=== PATIENT | female | born 1990 | race Caucasian/White ===

== ENCOUNTER 2025-05-18 08:58 | Observation (INO) | payer OTHER, SELFPAY ==
[2025-05-18] VITALS (8 sets, daily range): BP systolic 110–141; BP diastolic 64–87; PULSE 72–96; RESP 15–20; TEMP 36.6–37.4; O2SAT 97–100; BMI 21.2
--- NOTE | ~2025-05-18 | CT_ITS ---
EXAMINATION: CT abdomen pelvis w con DATE: 05/18/2025 10:09 INDICATION: Right upper and lower quadrant abdominal pain TECHNIQUE: Computed tomography (CT) of the abdomen and pelvis was performed with 100 mL Omnipaque-350 intravenous contrast. Automated exposure control and iterative reconstruction technique were employe d. The dose-length product was 205.29 mGy-cm. COMPARISON: None FINDINGS: Lung bases are clear. Visualized inferior heart is normal. No pericardial or pleural effusion. Liver, gallbladder, spleen, pancreas, bilateral adrenal glands and kidneys are normal. A fluid-filled dilat ed appendix measuring up to 1.3 cm diameter with appendicoliths at the base of the appendix and promi nent surrounding inflammatory stranding consistent with acute appendicitis. No abscess or free intrap eritoneal gas. Small amount of likely reactive free fluid in the deep pelvis. Bowels are otherwise un remarkable with no obstruction. Bladder, uterus and bilateral adnexa are unremarkable with 1.6 cm lik joaquín dominant follicle at the left ovary. No pathologically enlarged abdominal or pelvic lymphadenopat hy. Bones are unremarkable. IMPRESSION: 1. Acute appendicitis. Dr. Morfin discussed these findings with Dr. Gerber at 10:48 AM. Reviewed, dictated and finalized at location A.
--- OUTSIDE RECORDS SUMMARY | 2025-05-18 09:02 | XMS_ITS | Encounter Summary ---
Author Organization [employer] Address 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
--- OUTSIDE RECORDS SUMMARY | 2025-05-18 09:02 | XMS_ITS | Clinical Summary ---
Author Organization [facility] [email or web address] Address [address] [place] [address] Care Team Providers Care Experimental Mechanic Electrical Name Role Phone Sharath Varghese PA-C Primary Care Provider Source Comments [facility],non-owned Affiliates and Associated Physician Practices is amultiple site organization consisting of ambulatory clinics and hospital sitesin [place], [place], [place] and [place]. This disclosure is being madepursuant to the Care Everywhere program and may not contain all information available regarding this patient. Last updated 18.[facility] [email or web address] Allergies Active Allergy Reactions Criticality Noted Date Comments Amoxicillin Urticaria Medium 03/17/2017 Medications * Be aware that medications may not be up to date on this document. Alwaysverify current medications with the patient. 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 (F LUZONE; FLULAVAL; FLUARIX; AFLURIA QUADRIVALENT; 6MO+), 0.5 ML (IIV4) 08/19/2016 Influenza Nasal 08/14/2009 MENINGOCOCCAL ACWY (MCV4P) VAC IM 05/31/2007 MMR 04/10/1997,08/12/1993 POLIO OPV 04/10/1997, 4,1992,09/10,1992 TDAP (7yrs+) 04/18/2020,2006 Family History Medical History Relation Name Comments Cancer - Prostate Father Diabetes - Type 2 Father Cancer - Skin, Melanoma Mother Cancer - Prostate Paternal Grandfather Relation Name Status Comments Father Mother Alive Paternal Grandfather Sister 1 Alive Sister 2 Alive Social History Tobacco Use Types Packs/Day Years Used Date Smoking Tobacco: Never Smokeless Tobacco: Never Tobacco Cessation:Counseling Given: Not Answered Alcohol Use Standard Drinks/Week Comments Yes 0 (1 standard drink = 0.6 oz pur e alcohol) occasional/socially AUDIT-C Answer Date Recorded Q1: How often do you have a drink containing alc ohol? 2-4 times a month 12/05/2021 Average Number of Drinks Not on file 022 Q3: How often do you have si x or more drinks on one occasion? Never 12/05/2021 PHQ-2 Answer Date Recorded PHQ2 TOTAL SCORE 3 11/10/2021 Comments No Sex and Gender Information Value Date Recorded Sex Assigned at Not on file Legal Sex Female 9:24 AM CDT Gender Identity Not on file Sexual Orientation Not on file Last Filed Vital Signs Vital Sign Reading Time Taken Comments Blood Pressure 112/68 04/08/2023 8:45 AM CDT Pulse 67 04/08/2023 8:45 AM CDT Temperature 36.6 C (97.9 F) 04/08/2023 8:21 AM CDT Respiratory Rate 13 04/08/2023 8:45 AM CDT Oxygen Saturation 97% 04/08/2023 8:45 AM CDT Inhaled Oxygen Concentration - - Weight 64.6 kg (142 lb 8 oz) 04/08/2023 7:25 AM CDT Height 161.3 cm (5' 3.5) 04/08/2023 7:25 AM CDT Body Mass Index 24.85 04/08/2023 7:25 AM CDT Plan of Treatment Health Maintenance Due Date Last Done Comments HIV SCREENING 2007 HEPATITIS C SCREENING 04/30/2010 PAP SMEAR 2013 HPV VACCINE (3 - 3-dose series) 06/05/2014 03/13/2014, 03/25/2010 COVID-19 VACCINE ( season) 2024 08/22/2021, 01/30/2021, 01/02/2021 DEPRESSION SCREENING 10/18/2024 02/02/2022 INFLUENZA VACCINE (#1) 2025 , 08/19/2016, 08/14/2009 DTAP/TDAP/TD VACCINES (8 - Td or Tdap) 04/18/2030 04/18/2020, 2006, 04/10/1997, Additional history exists ZOSTER VACCINE (1 of 2) 2042 HIB VACCINE Completed 08/12/1993, 10/18, 1992, Additional history exists HEPATITIS B VACCINE Completed 11/06/2002, 05/15/2002, 03/28/2002 MENINGOCOCCAL GROUPS A/C/Y/W VACCINE Aged Out 05/31/2007 No longer eligible based on patient's age to complete this topic MENINGOCOCCAL (Group B) VACCINE SHARED DECISION-MAKING Aged Out No longer eligible based on patient's age to complete this topic PNEUMOCOCCAL VACCINE Aged Out No long er eligible based on patient's age to complete this topic Insurance AETNA AETNA Care Teams Experimental Mechanic Electrical Relationship Specialty Start Date End Date Sharath Varghese PA-C [address] [address] [facility] - General 04/08/20
--- OUTSIDE RECORDS SUMMARY | 2025-05-18 09:02 | XMS_ITS | Encounter Summary ---
Author Organization [employer] Address 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
--- OUTSIDE RECORDS SUMMARY | 2025-05-18 09:02 | XMS_ITS | Clinical Summary ---
Author Organization [facility] Address [address] [place] [address] Phone Care Team Providers Care Vtc Technician Name Role Phone Mariaelena Najera MD Primary Care Provider [phone] Allergies Active Allergy Reactions Criticality Noted Date Comments Amoxicillin Itching,Other (See Comments),Rash,Hives High 08/19/2016 Medications norethindrone Ac-Eth estradiol 1-20 mg-mcg tablet Take 1 Tablet by mouth. Active Norethindrn A-E estradiol-Iron (ESTROSTEP FE-28) 1-20(5)/1-30(7) /1mg-35mcg (9) tablet Take by mouth. 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 Gender Identity Not on file Sexual Orientation Not on file Occupation Industry Job Start Date Job End Date Not on file Not on file Not on file Not on file Last Filed Vital Signs Vital Sign Reading Time Taken Comments Blood Pressure 107/69 03/28/2019 1:15 PM CDT Pulse 70 07/14/2012 9:50 AM CDT Temperature 36.7 C (98.1 F) 07/14/2012 10:32 AM CDT Respiratory Rate 16 07/14/2012 10:32 AM CDT Oxygen Saturation 98% 07/14/2012 10:32 AM CDT Inhaled Oxygen Concentration - - Weight 48.7 kg (107 lb 6 oz) 03/28/2019 1:15 PM CDT Height 162.6 cm (5' 4) 03/28/2019 1:15 PM CDT Body Mass Index 18.43 03/28/2019 1:15 PM CDT Plan of Treatment Health Maintenance Due Date Last Done Comments HEPATITIS B VACCINES (1 of 3 - 19+ 3-dose series) 2011 HPV/Cotest (21-29) 2013 HPV VACCINES (2 - 3-dose series) 04/10/2014 03/13/20 14 DTAP/TDAP/TD VACCINES (4 - T d or Tdap) 2016 2006, 04/10/1997, 11/04/1993 CERVICAL CANCER SCREENING 2022 HPV/Cotest (30-65) 2022 PAP SMEAR 2022 INFLUENZA VACCINE (#1) 2025 08/19/2016, 2008 Advance Directives For more information, please contact: [phone] * Full Code (Latest Code Status on File) Date Activated Date Inactivated Comments 07/14/2012 8:36 AM 07/14/2012 12:35 PM * Full Code Date Activated Date Inactivated Comments 07/14/2012 7:52 AM 07/14/2012 8:36 AM * Full Code Date Activated Date Inactivated Comments 07/14/2012 5:55 AM 07/14/2012 7:52 AM Care Teams Vtc Technician Relationship Specialty Start Date End Date Mariaelena Najera MD PCP - General 06/28/08
--- OUTSIDE RECORDS SUMMARY | 2025-05-18 09:02 | XMS_ITS | Clinical Summary ---
Author Organization [facility] Address [address] [place] [address] Care Team Providers Care Superintendent Measurement Name Role Phone Maria De Jesus Love MD Primary Care Provider Kim good Allergies Active Allergy Reactions Criticality Noted Date Comments Amoxicillin Other (see Comments) 08/19/2016 Discoloration of skin Medications Norethindron-Eth inyl Estrad-Fe -/-30/-35 MG-MCG Tablet Take by mouth. Active Immunizations Immunization Administration Dates Next Due DTAP VACCINE 04/10/1997,11/04/1993 DTP Vaccine 1992,1992,1992 Hepatitis B Vaccine,unspecif ied Formulation 11/06/2002,05/15/2002,03/28/2002 Hib Vaccine,unspecified Formulation 07/19,1992,1992,07/09 Hpv, Unspecified Formulation 03/25/2010 Human Papillomavirus Vaccine (HPV), quadrivalent 03/13/2014 Influenza Vaccine Nasal 08/14/2009 MMR Vaccine 04/10/1997,08/12/1993 Meningococcal Vaccine, Unspe cified Formulation 05/31/2007 OPV 04/10/1997, 4,1992,09/10,1992 PUR FLU 3+ YRS PRES FREE QUAD IM 08/19/2016 TDAP Vaccine 2006 Family History Medical History Relation Name Comments High Cholesterol Father Dementia Maternal Grandmother Macular Degeneration Maternal Grandmother Stroke Maternal Grandmother Melanoma Mother Dementia Paternal Grandmother Relation Name Status Comments Father Alive Maternal Grandmother Mother Alive Paternal Grandmother Alive Social History Tobacco Use Types Packs/Day Years Used Date Smoking Tobacco: Never Smokeless Tobacco: Never Tobacco Cessation:Counseling Given: No Alcohol Use Standard Drinks/Week Comments Yes 0 (1 standard drink = 0.6 oz pur e alcohol) socially Comments No Sex and Gender Information Value Date Recorded Sex Assigned at Not on file Legal Sex Female 9:15 PM CDT Gender Identity Not on file Sexual Orientation Not on file Last Filed Vital Signs Vital Sign Reading Time Taken Comments Blood Pressure 100/60 08/19/2016 4:03 PM CDT Pulse 74 08/19/2016 4:03 PM CDT Temperature 36.3 C (97.4 F) 08/19/2016 4:03 PM CDT Respiratory Rate 18 08/19/2016 4:03 PM CDT Oxygen Saturation 97% 08/19/2016 4:03 PM CDT Inhaled Oxygen Concentration - - Weight 48.1 kg (106 lb) 08/19/2016 4:03 PM CDT Height 160 cm (5' 3) 08/19/2016 4:03 PM CDT Body Mass Index 18.78 08/19/2016 4:03 PM CDT Plan of Treatment Health Maintenance Due Date Last Done Comments Hepatitis C Virus (HCV) Screening 1992 Pap Smear 2013 Human Papillomavirus (HPV) Immunization (3 - 3-dose series) 06/05/2014 03/13/2014, 03/25/2010 DTaP/Tdap/Td Immunization (7 - Td or Tdap) 2016 2006, 04/10/1997, 11/04/1993, Additional history exists Cervical Cancer Screening (CCS) 2022 HPV/Cotest 2022 SARS-COV-2 Immunization ( season) 2024 08/22/2021, 01/30/2021, 01/02/2021 Influenza Immunization (#1) 2025 08/19/2016, 1 Respiratory Syncytial Virus (RSV) Immunization (Adult) (1 - 1-dose 75+ series) 2067 Hepatitis B Immunization Completed 003, 05/15/2002, 03/28/2002 Meningococcal Immunization (ACWY) Aged Out 05/31/2007 No longer eligible based on patient's age to complete this topic Pneumococcal Immunization Combined Aged Out No longer eligible based on patient's age to complete this topic Rotavirus Immunization Aged Out No lo nger eligible based on patient's age to complete this topic Insurance [facility] Member Subscriber Plan / Payer (Ef fective for All Dates) Name:Yolanda Miner Relation to Subscriber:Child Name:IsidraMarita Date of :1958 (Home) Address: [address] [place] [id number] Payer ID:[id number] Type:PPO Address: [address] Care Teams Superintendent Measurement Relationship Specialty Start Date End Date Maria De Jesus Love MD PCP - General Internal Medicine 08/19/16
--- OUTSIDE RECORDS SUMMARY | 2025-05-18 09:02 | XMS_ITS | Encounter Summary ---
Author Organization [employer] Address 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
--- OUTSIDE RECORDS SUMMARY | 2025-05-18 09:02 | XMS_ITS | Encounter Summary ---
Author Organization [employer] Address 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
--- OUTSIDE RECORDS SUMMARY | 2025-05-18 09:02 | XMS_ITS | Encounter Summary ---
Author Organization [facility] Address [address] [place] [address] Care Team Providers Care Interventional Sale Consultant Name Role Phone Sharath Varghese PA-C Primary Care Provider Reason for Visit * Reason Onset Date Comments Follow-up 04/09/2023 Encounter Details Date Type Department Care Team (Late st Contact Info) Description 04/09/2023 Patient Outreach [facility] [address] [place] [id number] Bolivar Patel RN Follow-up Social History Tobacco Use Types Packs/Day Years Used Date Smoking Tobacco: Never Smokeless Tobacco: Never Alcohol Use Standard Drinks/Week Comments Yes 0 [...] on file Sexual Orientation Not on file COVID-19 Exposure Response Date Recorded In the last 10 days, have yo u been in contact with someone who was confirmed or suspected to have Coronavirus/COVID-19? No / Unsure 04/08/2023 7:10 AM CDT documented as of this encounter Functional Status * Is person deaf or have serious hearing difficulty? Answer Date of Assessment Author No 04/08/2023 8:25 AM Charly Bryant RN * Is person blind or have serious difficulty seeing? Answer Date of Assessment Author No 04/08/2023 8:25 AM POLOT Charly Muniz RN * Does person have serious difficulty walking/climbing stairs? Answer Date of Assessment Author No 04/08/2023 8:25 AM Charly Bryant RN * Does person have difficulty dressing/bathing? Answer Date of Assessment Author No 04/08/2023 8:25 AM Charly Bryant RN * Does person have difficulty doing errands alone? Answer Date of Assessment Author No 04/08/2023 8:25 AM Charly Bryant RN documented as of this encounter Mental Status * Does person have difficulty concentrating/remembering/making decisions? Answer Entry Date Author No 04/08/2023 8:25 AM Charly Bryant RN documented in this encounter Plan of Treatment Not on file documented as of this encounter Visit Diagnoses Not on filedocumented in this encounter Care Teams Interventional Sale Consultant Relationship Specialty Start Date End Date Sharath Varghese PA-C [address] [address] PCP - General 04/08/20 documented as of this encounter
--- OUTSIDE RECORDS SUMMARY | 2025-05-18 09:02 | XMS_ITS | Encounter Summary ---
Author Organization [facility] Address [address] [place] [address] Care Team Providers Care Medical Coding Specialist Name Role Phone Sharath Varghese PA-C Primary Care Provider Encounter Details Date Type Department Care Team (Late st Contact Info) Description 04/24/2022 Patient Outreach [facility] [address] [place] [address] Glenis Tavera, RN Social History Tobacco Use Types Packs/Day Years Used Date Smoking Tobacco: Never Smokeless Tobacco: Never Alcohol Use Standard Drinks/Week Comments Yes 0 (1 standard drink = 0.6 oz pur e alcohol) occasional AUDIT-C Answer Date Recorded Q1: How often [...] on file documented as of this encounter Functional Status * Is person deaf or have serious hearing difficulty? Answer Date of Assessment Author No 04/23/2022 11:25 AM Violeta Naik RN * Is person blind or have serious difficulty seeing? Answer Date of Assessment Author No 04/23/2022 11:25 AM Violeta Naik RN * Does person have serious difficulty walking/climbing stairs? Answer Date of Assessment Author No 04/23/2022 11:25 AM Violeta Naik RN * Does person have difficulty dressing/bathing? Answer Date of Assessment Author No 04/23/2022 11:25 AM Violeta Naik RN * Does person have difficulty doing errands alone? Answer Date of Assessment Author No 04/23/2022 11:25 AM Violeta Naik RN documented as of this encounter Mental Status * Does person have difficulty concentrating/remembering/making decisions? Answer Entry Date Author No 04/23/2022 11:25 AM Violeta Naik RN documented in this encounter Plan of Treatment Not on file documented as of this encounter Visit Diagnoses Not on filedocumented in this encounter Care Teams Medical Coding Specialist Relationship Specialty Start Date End Date Sharath Varghese PA-C [address] [address] PCP - General 04/08/20 documented as of this encounter
--- NOTE | 2025-05-18 09:19 | ED_ITS ---
HPI - General Adult General Chief complaint: Abdominal Pain Stated complaint: abd pain Time Seen by Provider: 05/18/25 09:01 History of Present Illness HPI narrative: 35-year-old female presented to the emergency department for evaluation for right-sided abdominal pain with associated nausea and vomiting. Patient reports symptoms started yesterday afternoon and did worsen over the course of the evening. Patient denies any significant past medical history other than cleft palate. Patient denies any prior history of ovarian cyst, gallbladder issues or appendicitis. Patient has no abdominal surgical history. Related Data Home Medications ?Medication ?Instructions ?Recorded ?Confirmed ?Last Taken ?Type cetirizine 10 mg tablet (24Hour 10 mg PO DAILY 05/18/25 05/18/25 05/17/25 History Allergy) fluticasone propionate 50 1 spray intranasal DAILY 05/18/25 05/18/25 05/17/25 History mcg/actuation nasal spray,suspension (24 Hour Allergy Relief) sertraline 25 mg tablet 25 mg PO Q24H 05/18/25 05/18/25 05/17/25 History Allergies Allergy/AdvReac Type Severity Reaction Status Date / Time amoxicillin Allergy Intermediate rash Verified 05/18/25 13:19 Review of Systems 2 Review of Systems: All systems reviewed & are unremarkable except as noted in HPI and below PMFSH Social History Social History Smoking status: Never smoker Drinks per week: 3 Substance use type: does not use Lack of Transportation: No Lack of Food: Never True Current Housing: I Have Housing Concerned About Future Housing: No Difficulty Paying Gas/Electric Bills: No Difficulty Paying for Meds: No Currently Unemployed: No Education: Decline to Answer Difficulty w/ Childcare or Family Care: No Spiritual care concerns: No Exam 2 Narrative: APPEARANCE: Uncomfortable appearing. HEAD: normocephalic, atraumatic. EYES: PERRLA/EOMI, conjunctivae clear. NOSE: Normal no drainage EARS:TMS clear with good light reflex. THROAT: Pharynx clear, no exudate. NECK: Supple. No adenopathy, no masses. RESPIRATORY: Airway patent, respirations nonlabored. Clear to auscultation bilaterally, no rales, rhonchi, wheezing. CARDIOVASCULAR: Regular rate and rhythm without murmurs rubs or gallops. ABDOMINAL: Right upper and right lower quadrant tenderness to palpation, rebound and guarding MUSCULOSKELETAL: Moves all extremities. Strength/ROM intact, No edema, No calf tenderness. NEURO: Alert. Cranial nerves II through XII intact. Good gait. Good coordination SKIN: Warm, dry. Normal Color Course Vital Signs Vital signs: Vital Signs Temperature 98.3 F 05/18/25 09:06 Pulse Rate 88 05/18/25 09:06 Respiratory Rate 18 05/18/25 09:06 Blood Pressure 141/87 H 05/18/25 09:06 Pulse Oximetry 100 05/18/25 09:06 Oxygen Delivery Room Air 05/18/25 09:06 Temperature 98.1 F 05/18/25 13:58 Pulse Rate 72 05/18/25 13:58 Respiratory Rate 16 05/18/25 13:58 Blood Pressure 129/81 05/18/25 13:58 Pulse Oximetry 99 05/18/25 13:58 Oxygen Delivery Room Air 05/18/25 09:06 Medical Decision Making MDM Narrative Medical decision making narrative: 35-year-old female presenting to the emergency department for evaluation for right-sided abdominal pain. Patient is currently afebrile does have a leukocytosis of 17.9 heme 13.7. INR is 1.1. Patient has no acute abnormalities on her CMP. Patient has no elevation of AST ALT alk-phos or lipase. UA was negative for infection but positive for ketones. CT was concerning for acute appendicitis without abscess without perforation. Patient was treated with 1 L of IV fluids, started on IV Zosyn. Patient was initially treated 0.5 mg of IV Dilaudid for pain medication. Case was discussed with surgery and patient was admitted primarily to surgery. Patient was updated on the plan for chest pain had surgery today. Differential Diagnosis Differential Diagnosis: Colitis, diverticulitis, cholecystitis, appendicitis Vital Signs Vital Signs: Vital Signs Temperature 98.3 F 05/18/25 09:06 Pulse Rate 88 05/18/25 09:06 Respiratory Rate 18 05/18/25 09:06 Blood Pressure 141/87 H 05/18/25 09:06 Pulse Oximetry 100 05/18/25 09:06 Oxygen Delivery Room Air 05/18/25 09:06 Temperature 98.1 F 05/18/25 13:58 Pulse Rate 72 05/18/25 13:58 Respiratory Rate 16 05/18/25 13:58 Blood Pressure 129/81 08/01/25 13:58 Pulse Oximetry 99 05/18/25 13:58 Oxygen Delivery Room Air 05/18/25 09:06 Lab Data Lab results reviewed: Yes I reviewed the patient's lab results. 05/18/25 09:12 05/18/25 09:12 Labs: Lab Results 05/18/25 05/18/25 Range/Units 09:07 09:12 WBC 17.9 H (4.5-10.0) K/mm3 RBC 4.50 (4.2-5.4) M/mm3 Hgb 13.7 (12.0-15.0) g/dL Hct 40.3 (37.0-47.0) % MCV 89.6 (80-100) fl MCH 30.4 (26-34) pg MCHC 34.0 (32-36) g/dl RDW 11.3 L (11.5-14.5) % Plt Count 277 (150-375) k/mm3 MPV 11.1 H (7.4-10.4) fl Immature Gran % (Auto) 0.4 (0-0.5) % Neut % (Auto) 91.9 H (45.5-73.1) % Lymph % (Auto) 3.5 L (18.3-44.2) % [place] % (Auto) 4.0 (2.6-8.5) % Eos % (Auto) 0.0 (0-4.4) % Baso % (Auto) 0.2 (0.2-1.2) % Lymph # (Auto) 0.63 L (0.9-3.2) K/mm3 [place] # (Auto) 0.7 H (0.1-0.6) K/mm3 Eos # (Auto) 0.0 (0-0.3) K/mm3 Baso # (Auto) 0.0 (0.0-0.1) K/mm3 Abs Immat Gran (auto) 0.08 H (0.00-0.031) K/mm3 Absolute Neuts (auto) 16.4 H (1.3-6.7) K/mm3 Absolute Nucleated RBC 0.000 (0.0-0.012) K/mm3 Nucleated RBC % 0.0 (0.0-0.2) % PT 13.9 (11.1-14.7) Seconds INR 1.1 APTT 27.3 (22.3-36.8) Seconds Sodium 136 L (137-145) mmol/L Potassium 3.9 (3.4-5.0) mmol/L Chloride 103 (98-107) mmol/L Carbon Dioxide 23 (22-30) mmol/L Anion Gap 10 (4-12) mmol/L BUN 7 (7-17) mg/dL Creatinine 0.77 (0.7-1.0) mg/dL Estim Creat Clear Calc 75 ml/min Estimated GFR > 60 (59 - ) Glucose 105 (65-110) mg/dL Calcium 9.3 (8.4-10.2) mg/dL Total Bilirubin 0.5 (0.2-1.3) mg/dL AST 26 (14-36) U/L ALT 22 (6-35) U/L Alkaline Phosphatase 67 (38-126) U/L Total Protein 7.6 (6.3-8.2) g/dL Albumin 4.5 (3.5-5.1) g/dL Lipase 91 (23-300) U/L Urine Color Yellow (Yellow) Urine Appearance Clear (Clear) Urine pH 6.0 (5.0-9.0) Ur Specific [place] 1.007 (1.001-1.035) Urine Protein Negative (Negative) mg/dL Urine Glucose (UA) Negative (Negative) mg/dL Urine Ketones 2+ H (Negative) mg/dL Ur Blood (Man) Negative (Negative) Urine Nitrate Negative (Negative) Urine Bilirubin Negative (Negative) Urine Urobilinogen 0.2 (<2.0) mg/dL Leukocyte Esterase Rfl Negative (Negative) LANETTE/UL Urine Test Negative Imaging Data Radiologist's impression: Impressions Abdomen/Pelvis CT 05/18/25 10:45 IMPRESSION: 1. Acute appendicitis. Dr. Morfin discussed these findings with Dr. Gerber at 10:48 AM. Discharge Plan Discharge Clinical Impression: Acute appendicitis Patient Disposition: Still a Patient Condition: Stable
[2025-05-18 09:22] LABS: Hematocrit 40.3 % (37.0-47.0); Hemoglobin 13.7 g/dL (12.0-15.0); Immature Granulocyte Percent A 0.4 % (0-0.5); Lymphocytes Absolute Auto 0.63 K/mm3 (0.9-3.2); Mean Corpuscular HGB Conc 34.0 g/dl (32-36); Mean Corpuscular Hemoglobin 30.4 pg (26-34); Mean Corpuscular Volume 89.6 fl (80-100); Nucleated Red Blood Cells Absolute Auto 0.000 K/mm3 (0.0-0.012); Nucleated Red Blood Cells Perc 0.0 % (0.0-0.2); Platelet Count Result 277 k/mm3 (150-375); Red Blood Count 4.50 M/mm3 (4.2-5.4); White Blood Count 17.9 K/mm3 (4.5-10.0)
[2025-05-18 09:24] LABS: Add Urine Microscopic? NO; Appearance Urine Clear (Clear); Glucose Urine UA Negative (Negative); Leukocyte Esterase Ur Negative LEU/UL (Negative); Nitrate Urine Negative (Negative); Specific Grav Ur 1.007 (1.001-1.035)
[2025-05-18 09:30] LABS: INR 1.1; Partial Thromboplastin Time 27.3 Seconds (22.3-36.8); Prothrombin Time 13.9 Seconds (11.1-14.7)
--- OUTSIDE RECORDS SUMMARY | 2025-05-18 09:43 | XMS_ITS | Clinical Summary ---
Author Organization [facility] Address [address] [place] [address] Care Team Providers Care Freelance Director Name Role Phone Maria De Jesus Love [...] patient's age to complete this topic Insurance [facility] Member Subscriber Plan / Payer (Ef fective for All Dates) Name:Yolanda Miner Relation to Subscriber:Child Name:IsidraMarita Date of :1956 (Home) Address: [address] [place] [id number] Payer ID:[id number] Type:PPO Address: [address] Care Teams Freelance Director Relationship Specialty Start Date End Date Maria De Jesus Love MD PCP - General Internal Medicine 08/19/16
--- OUTSIDE RECORDS SUMMARY | 2025-05-18 09:43 | XMS_ITS | Encounter Summary ---
Author Organization [facility] Address 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
--- OUTSIDE RECORDS SUMMARY | 2025-05-18 09:43 | XMS_ITS | Clinical Summary ---
Author Organization [facility] Address [address] [place] [address] Care Team Providers Care Propulsion Systems Engineer Name Role Phone Sharath Varghese PA-C Primary Care Provider Source Comments [facility],non-owned Affiliates and Associated Physician Practices is amultiple site organization consisting of ambulatory clinics and hospital sitesin [place], [place], [place] and [place]. This disclosure is being madepursuant to the Care Everywhere program and may not contain all information available regarding this patient. Last updated 18.[facility] Allergies Active Allergy Reactions Criticality Noted Date [...] this topic Insurance AETNA AETNA Care Teams Propulsion Systems Engineer Relationship Specialty Start Date End Date Sharath Varghese PA-C [address] [address] [facility] - General 04/08/20
--- OUTSIDE RECORDS SUMMARY | 2025-05-18 09:43 | XMS_ITS | Clinical Summary ---
Author Organization [facility] Address [address] [place] [address] Phone Care Team Providers Care Lithographic Press Operator Name Role Phone Mariaelena Najera MD Primary Care Provider [phone] Allergies Active Allergy Reactions Criticality Noted Date [...] on file Legal Sex Female 4:[address] Gender Identity Not on file Sexual Orientation [...] Advance Directives For more information, please contact: [phone] * Full Code (Latest Code Status on File) Date Activated Date Inactivated Comments 07/14/2012 8:36 AM 07/14/2012 12:35 PM * Full Code Date Activated Date Inactivated Comments 07/14/2012 7:52 AM 07/14/2012 8:36 AM * Full Code Date Activated Date Inactivated Comments 07/14/2012 5:55 AM 07/14/2012 7:52 AM Care Teams Lithographic Press Operator Relationship Specialty Start Date End Date Mariaelena Najera MD PCP - General 06/28/08
--- OUTSIDE RECORDS SUMMARY | 2025-05-18 09:43 | XMS_ITS ---
Author Organization [facility] ([address]) Address [address] [place] [address] Care Team Providers Care Delinquent Notice Machine Operator Name Role Phone Yahaira Bautista Unavailable [phone] REASON FOR VISIT ARC follow-up Encounters Encounter Location Date Provider Diagnosis [facility] [address] [place] [address] 08/30/2024 Yahaira Bautista Plan Of Treatment No Information Progress Notes * Yolanda HESS NDOB: [birth year] (35 yo F)Acc No.[id number]:08/30/2024 Progress Notes Patient: Yolanda FRANKS Provider: Anup Bautista MD :1990 A ge:34 Y S ex:Female Date:08/30/2024 Address:[address] Subjective: * Chief Complaints: * 1 . [facility] follow-up. * Medical History: Objective: * Vitals: Assessment: Plan: * Treatment: * Billing Information: * Visit Code: * Procedure Codes: * Electronic signature of Allie Bautista MD on 05/18/2025 at 09:43 AM CDT Sign off status: Pending * Provider: Anup Bautista MD Date: 10/30/2023 Generated for Riky chamorro/Rafa/Thiago on: 0 05/18/2025 09:43 AM CDT
--- OUTSIDE RECORDS SUMMARY | 2025-05-18 09:43 | XMS_ITS | Patient Health Record ---
Author Organization [facility] Address [address] [facility] [address] [facility] [address] [place] [address] Care Team Providers Care Preschool Teacher'S Assistant Name Role Phone BriannemegLin Primary Care Provider Allergies Allergen (clinical drug ingredient) Drug/Non Drug Allergy documented on EMR Reaction Allergy Type Onset Date Status amoxicillin Amoxicillin Rash Drug Allergy Act mable Reason For Referral No Information Medications Medication SIG (Take, Route, Frequency, Duration) Notes Start Date End Date Status Cetirizine HCl 10 MG 1 tablet Orally Onc e a day for 90 days Active Fluticasone Propionate 50 MCG/ACT 1 spray in each nostril Nasally Once a day for 90 days Active Liss FE 11/06 1-20 MG-MCG 1 tablet Oral ly Once a day Active Social History Tobacco Use: Social History Observation Description Date Details (start date - stop date) Never Smoker NA - NA Tobacco Control Question Answer Notes Tobacco use: Nonsmoker AUDIT-C (Standard) Question Answer Notes Did you have a drink containing alcohol in the p ast year? No Points 0 Interpretation Negative Problems Problem Type SNOMED Code ICD Code Onset Dates Problem Status W/U Status Risk Notes Problem Seasonal allergy (791038169) Seasonal allergies (J30.2) Active confirmed Vital Signs Heart Rate 65 /min 01/29/2025 Temperature 98.1 degrees Fahrenheit 01/29/2025 Respiratory Rate 15 /min 01/29/2025 Height-cm 160.02 cm 01/29/2025 Oximetry 100 % 01/29/2025 Blood pressure diastolic 64 mm Hg 01/29/2025 Weight-kg 56.34 kg 01/29/2025 Height 63 in 01/29/2025 Blood pressure systolic 98 mm Hg 01/29/2025 Weight 124.2 lbs 01/29/2025 BMI 22 kg/m2 01/29/2025 Encounters Encounter Location Date Provider Diagnosis [facility] [place] [place] [address] [place] [address] 01/29/2025 Lin Swenson Seasonal allergies J30.2 and Adult general medical examination Z00.00 Assessments Encounter Date Diagnosis (ICD Code) Assessment Notes Treatment Notes Treatment Clinical Notes Section Notes 01/29/2025 Seasonal allergies (ICD-10 - J30.2) please make an appointment in one year for refills 01/29/2025 Adult general medical examination (ICD-10 - Z00.00) Plan Of Treatment No Information Insurance Providers Payer Name Payer Address Payer Phone Subscriber Number Group Number Insured Name Patient Relationship to Insured Coverage Start Date Coverage End Date SSD A[employer] PPO [address] [place] [address] [id number] HERMELINDA HESS Self - patient is the insured 3 [employer] Aet[employer] PPO [address] [place] [address] [id number] HERMELINDA HESS Self - patient is the insured 3 3 Medical (General) History Medical History History ICD Code Alleriges Anxiety Headaches Surgical History Surgery Date(Month/Year) Fistula repair 2013 Bone Graft 2001 Amarilys lip and palate 1992
--- OUTSIDE RECORDS SUMMARY | 2025-05-18 09:43 | XMS_ITS | Patient Health Record ---
Author Organization [facility] [place] ([address]) Address [address] [place] [address] Care Team Providers Care Metal Precision Machine Assembler Name Role Phone Yahaira Bautista Unavailable [phone] Allergies Allergen (clinical drug ingredient) Drug/Non Drug Allergy documented on EMR Reaction Allergy Type Onset Date Status amoxicillin Amoxicillin rash after taking for strep Drug Allergy Active Reason For Referral No Information Medications Medication SIG (Take, Route, Frequency, Duration) Notes Start Date End Date Status Fluticasone Propionate 50 MCG/ACT 2 sprays in each nostril Nasally Twice a day; Duration: 30 days 04/25/2025 Active Sertraline HCl 25 MG 1 tablet Orally Onc e a day Not-Taking Omeprazole 20 MG 1 capsule 1/2 to 1 h our before morning meal Orally Once a day Not-Taking Flonase Allergy Relief 50 MCG/ACT 1 spray in each nostril Nasally Once a day Active ZyrTEC 10 MG 1 tablet Orally Once a day Active Cetirizine HCl 10 MG 1 tablet Orally Onc e a day; Duration: 30 days 04/25/2025 Active Magnesium Active Vitamin B12 Active Social History Tobacco Use: Social History Observation Description Date Details (start date - stop date) Never Smoker NA - NA Tobacco Control (Standard) Question Answer Notes Tobacco use: Nonsmoker AUDIT-C (Standard) Question Answer Notes Did you have a drink contain ing alcohol in the past year? Yes How often did you have a dri nk containing alcohol in the past year? 2 to 4 times a month (2 points) How many drinks did you have on a typical day when you were drinking in the past year? 1 or 2 drinks (0 point) How often did you have six o r more drinks on one occasion in the past year? 2 to 4 times a month (2 points) Points 4 Interpretation Positive Problems Problem Type SNOMED Code ICD Code Onset Dates Problem Status W/U Status Risk Notes Problem Chronic allergic conjunctivitis (37237617) Other chronic allergic conjunctivitis (H10.45) Active confirmed Problem Allergic rhinitis caused by pollen (disorder) (25499872) Allergic rhinitis due to pollen (J30.1) Active confirmed Problem Allergic rhinitis (86819410) Other allergic rhinitis (J30.89) Active confirmed Problem Eosinophilic esophagitis (618936289) Eosinophilic esophagitis (K20.0) Active confirmed Problem Allergic rhinitis caused by animal hair and dander (822675326898575) Allergic rhinitis due to animal (cat) (dog) hair and dander (J30.81) Active confirmed Problem Allergy to egg protein (finding) (524237896) Allergy to eggs (Z91.012) Active confirmed Vital Signs Oximetry 99 % 04/25/2025 Blood pressure diastolic 66 mm Hg 04/25/2025 Height 63 in 04/25/2025 Blood pressure systolic 102 mm Hg 04/25/2025 Weight 122.0 lbs 04/25/2025 BMI 21.61 kg/m2 04/25/2025 Encounters Encounter Location Date Provider Diagnosis [facility] [address] [address] 04/25/2025 Yahaira Bautista Allergic rhinitis du e to pollen J30.1 ; Eosinophilic esophagitis K20.0 ; Allergic rhinitis due to animal (cat) (dog) hair and dander J30.81 ; Other allergic rhinitis J30.89 ; Other chronic allergic conjunctivitis H10.45 and Allergy to eggs Z91.012 [facility] [address] [address] 08/02/2024 Yahaira Bautista Allergic rhinitis du e to pollen J30.1 ; Eosinophilic esophagitis K20.0 ; Allergic rhinitis due to animal (cat) (dog) hair and dander J30.81 ; Other allergic rhinitis J30.89 ; Other chronic allergic conjunctivitis H10.45 and Allergy to eggs Z91.012 [facility] [address] [place] [address] 04/29/2025 Yahaira Bautista Assessments Encounter Date Diagnosis (ICD Code) Assessment Notes Treatment Notes Treatment Clinical Notes Section Notes 08/02/2024 Allergic rhinitis due to pollen (ICD-10 - J30.1) Given the history and symptoms, skin testing was performed to common aeroallergens to determine atopic status. Yolanda clearly suffers from atopic disease based upon our skin testing and clinical history. Accordingly, we have introduced a new, aggressive medication regimen, discussed nasal washes and allergy-specific avoidance measures. We also discussed adjunctive therapies including subcutaneous, specific allergen immunotherapy as relates to the treatment and prevention of atopic disease. She is currently considering the risks, benefits and alternatives to this care. Risks: bleeding, infection, allergic reaction, anaphylaxis; Benefits: reduced need for medications, improved symptoms, disease modification. Alternatives: watch/wait, change medication regimen, improve allergy avoidance measures. Follow-up in 1 month for interval evaluation and management 08/02/2024 Eosinophilic esophagitis (ICD-10 - K20.0) Records were reviewed and Yolanda has eosinophilic esophagitis that is responsive to omeprazole with 96 eos/hpf which dropped to 9 eos/hpf on most recent biospy -2022 while taking omeprazole. At this time, I do not think a 6 food elimination diet would allow Yolanda to stop omeprazole. She may benefit from modifying her diet to avoid GERD triggering food. If symptoms recur while on the diet, would need to restart omeprazole and have EGD performed. We also discussed Dupixent and handout given. 04/25/2025 Allergic rhinitis due to pollen (ICD-10 - J30.1) Yolanda clearly suffers from atopic disease based upon our skin testing and clinical history. Accordingly, we have introduced a new, aggressive medication regimen, discussed nasal washes and allergy-specific avoidance measures. We also discussed adjunctive therapies including subcutaneous, specific allergen immunotherapy as relates to the treatment and prevention of atopic disease. She is currently considering the risks, benefits and alternatives to this care. Risks: bleeding, infection, allergic reaction, anaphylaxis; Benefits: reduced need for medications, improved symptoms, disease modification. Alternatives: watch/wait, change medication regimen, improve allergy avoidance measures. Follow-up in 1 month for interval evaluation and management 04/25/2025 Eosinophilic esophagitis (ICD-10 - K20.0) Records were reviewed and Yolanda has eosinophilic esophagitis that is responsive to omeprazole with 96 eos/hpf which dropped to 9 eos/hpf on most recent biospy -2022 while taking omeprazole. She has seen much improvement with food elimination and not requiring PPI at this time. If symptoms recur need to restart omeprazole and f/u with GI for EGD. 04/25/2025 Allergic rhinitis due to animal (cat) (dog) hair and dander (ICD-10 - J30.81) Follow allergen avoidance, meds and consider SCIT as an adjunctive treatment to current regimen 08/02/2024 Allergic rhinitis due to animal (cat) (dog) hair and dander (ICD-10 - J30.81) Follow allergen avoidance, meds and consider SCIT as an adjunctive treatment to current regimen 08/02/2024 Other allergic rhinitis (ICD-10 - J30.89) 04/25/2025 Other allergic rhinitis (ICD-10 - J30.89) 08/02/2024 Other chronic allergic conjunctivitis (ICD-10 - H10.45) Given ocular signs and symptoms I encouraged allergy avoidance measures and meds as above. If symptoms persist, consider adding additional medications including intraocular antihistamine/mas t cell stabilizer, PRN 04/25/2025 Other chronic allergic conjunctivitis (ICD-10 - H10.45) Given ocular signs and symptoms I encouraged allergy avoidance measures and meds as above. If symptoms persist, consider adding additional medications including intraocular antihistamine/mas t cell stabilizer, PRN 08/02/2024 Allergy to eggs (ICD-10 - Z91.012) History is not consistent with an IgE mediated allergic food reaction. Skin testing negative for egg. Continue to avoid if triggers GERD. 04/25/2025 Allergy to eggs (ICD-10 - Z91.012) History is not consistent with an IgE mediated allergic food reaction. Skin testing negative for egg. Continue to avoid if triggers GERD. Plan Of Treatment No Information Insurance Providers Payer Name Payer Address Payer Phone Subscriber Number Group Number Insured Name Patient Relationship to Insured Coverage Start Date Coverage End Date Aet[employer] Choice POS II [address] [place] [address] [id number] 1 Yolanda Miner Self - patient is the insured 3 Medical (General) History Medical History History ICD Code Anxiety Eosinophilic Esophagitis Surgical History Surgery Date(Month/Year) cleft palate repair 1991 Hospitalization History Reason Date(Month/Year) See Above
--- OUTSIDE RECORDS SUMMARY | 2025-05-18 09:43 | XMS_ITS | Encounter Summary ---
Author Organization [facility] Address [address] [place] [address] Care Team Providers Care Hospital Unit Coordinator Name Role Phone Mariaelena Najera MD Primary Care Provider [phone] Encounter Details Date Type Department Care Team (Latest Contact Info) Description 05/27/2007 Outpatient Historical HIS CLEFT LIP PALATE Conversion, History Unspecified Cleft Palate with Cleft Lip (Primary Dx) Social History Tobacco Use Types Packs/Day Years Used Date Smoking Tobacco: Never Assessed Comments Unknown Sex and Gender Information Value Date Recorded Sex Assigned at Not on file Legal Sex Female 4:04 AM OPTIMIZATION ANALYST Gender Identity Not on file Sexual Orientation Not on file documented as of this encounter Plan of Treatment Not on file documented as of this encounter Visit Diagnoses Diagnosis Cleft lip and cleft palate, unspecified- Primary documented in this encounter Care Teams Hospital Unit Coordinator Relationship Specialty Start Date End Date Mariaelena Najera MD PCP - General 06/28/08 documented as of this encounter
--- OUTSIDE RECORDS SUMMARY | 2025-05-18 09:43 | XMS_ITS | Encounter Summary ---
Author Organization [facility] Health Address [address] [place] [address] Care Team Providers Care Green Chain Worker Name Role Phone Sharath Varghese PA-C Primary Care Provider Reason for Visit * Reason Onset Date Comments Follow-up 04/09/2023 Encounter Details Date Type Department Care Team (Late st Contact Info) Description 04/09/[address] [facility] [address] [place] [id number] Bolivar Patel RN Follow-up Social History Tobacco [...] on filedocumented in this encounter Care Teams Green Chain Worker Relationship Specialty Start Date End Date Sharath Varghese PA-C [address] [address] PCP - General 04/08/20 documented as of this encounter
--- OUTSIDE RECORDS SUMMARY | 2025-05-18 09:43 | XMS_ITS | Encounter Summary ---
Author Organization [employer] Address 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
--- OUTSIDE RECORDS SUMMARY | 2025-05-18 09:43 | XMS_ITS | Encounter Summary ---
Author Organization [employer] Address 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
--- OUTSIDE RECORDS SUMMARY | 2025-05-18 09:43 | XMS_ITS | Encounter Summary ---
Author Organization [facility] Health Address [address] [place] [address] Care Team Providers Care Cobbler Upper Name Role Phone Sharath Varghese PA-C Primary Care Provider Encounter Details Date Type Department Care Team (Late st Contact Info) Description 04/24/2022 Patient Outreach [facility] [address] [place] [address] Glenis Tavera, RN Social History [...] on filedocumented in this encounter Care Teams Cobbler Upper Relationship Specialty Start Date End Date Sharath Varghese PA-C [address] [address] PCP - General 04/08/20 documented as of this encounter
[2025-05-18 09:44] LABS: Alanine Aminotransferase 22 U/L (6-35); Albumin Level 4.5 g/dL (3.5-5.1); Alkaline Phosphatase 67 U/L (38-126); Anion Gap 10 mmol/L (4-12); Aspartate Amino Transferase 26 U/L (14-36); Bilirubin,Total 0.5 mg/dL (0.2-1.3); Blood Urea Nitrogen 7 mg/dL (7-17); Calcium 9.3 mg/dL (8.4-10.2); Carbon Dioxide 23 mmol/L (22-30); Chloride 103 mmol/L (98-107); Estimated CRCL calculation 75 ml/min; Estimated Glomerular Filt Rate > 60; Glucose 105 mg/dL (65-110); Lipase 91 U/L (23-300); Potassium 3.9 mmol/L (3.4-5.0); Sodium 136 mmol/L (137-145); Total Protein 7.6 g/dL (6.3-8.2)
[2025-05-18] MEDS: HYDROmorphone HCL INJ (*CRX) 2 MG/ML VIAL 0.5 MG IV PUSH ×4 (09:52→19:00)
[2025-05-18] MEDS: ONDANSETRON INJ 4 MG/2 ML VIAL IV PUSH ×2 (09:52→13:41)
[2025-05-18] MEDS: HYDROmorphone HCL INJ (*CRX) 2 MG/ML VIAL 1 MG IV PUSH (11:08)
[2025-05-18] MEDS: PIPERACILLIN/TAZOBACTAM SOD 3.375 GM in SODIUM CHLORIDE 0.9% IV 50 ML 100 ML IVPB ×2 (11:08→22:12)
[2025-05-18] MEDS: LACTATED RINGERS 1,000 ML 999 ML IV CONT (11:08)
--- NOTE | 2025-05-18 11:56 | PM.IMHP ---
H&P: HPI History of Present Illness Date/Time: 05/18/25 11:56 Chief Complaint: Acute appendicitis Narrative: Patient is a 35-year-old female who presents to the emergency room with a complaint of worsening right lower quadrant abdominal pain. She stated the pain started yesterday afternoon been worsened over the evening until this morning when she decided to present to the emergency room. She did have episodes of nausea vomiting. No diarrhea. She has never had pain like this in the past. He has never had abdominal surgery in the past. Elevated white blood count of 17,000. No fever. CT scan abdomen pelvis shows a dilated appendix measuring 1.3cm in diameter which is fluid filled with some periappendiceal inflammation. There are appendicoliths at the base of the appendix. No perforation or periappendiceal abscess is seen. Review of Systems Review of Systems: The remainder of the review of systems to include constitutional, HEENT, cardiovascular, respiratory, GI, , integumentary, musculoskeletal, endocrine, immunologic, hematologic, psychiatric, and neurologic are all negative except for which is mentioned above in the HPI. Meds Home Medications and Allergies Allergies Allergy/AdvReac Type Severity Reaction Status Date / Time amoxicillin Allergy Intermediate rash Verified 05/18/25 09:10 Vital Signs Vital Signs - 24 hr 05/18/25 09:06 Temperature 36.8 C Pulse Rate 88 Respiratory Rate 18 Blood Pressure 141/87 H Pulse Oximetry 100 Oxygen Delivery Room Air Exam Const: General: comfortable and no acute distress HENMT: Ears: TM's normal bilaterally Face/Nose/Sinus: Normal nares present Mouth: Yes moist mucous membranes Eyes: General: appearance normal, both eyes and all related structures Sclera: sclerae normal Pupils: Equal, round and reactive pupils present EOM: EOMs intact bilaterally Neck: Neck: supple and no JVD Resp: Effort & Inspection: normal respiratory effort Auscultation: clear to auscultation bilaterally Cardio: Rate: regular rate Rhythm: regular rhythm GI: Other: Soft nondistended no masses. Ventral hernias. Moderate tenderness with some voluntary guarding right lower quadrant. No generalized rebound tenderness. Skin: General skin exam: normal color and no rashes or lesions noted Neuro: General: gait normal Speech: normal speech Motor exam (neuro): 5/5 motor strength present throughout Sensory Exam: normal sensation Extrem: General: normal to inspection Psych: Mental Status: mental status grossly normal Affect: normal affect H&P: Results Labs Labs: Short CBC 05/18/25 Range/Units 09:12 WBC 17.9 H (4.5-10.0) K/mm3 Hgb 13.7 (12.0-15.0) g/dL Hct 40.3 (37.0-47.0) % Plt Count 277 (150-375) k/mm3 BMP 05/18/25 09:12 Sodium 136 L Potassium 3.9 Chloride 103 Carbon Dioxide 23 BUN 7 Creatinine 0.77 Glucose 105 Calcium 9.3 Liver Function 05/18/25 Range/Units 09:12 Total Bilirubin 0.5 (0.2-1.3) mg/dL AST 26 (14-36) U/L ALT 22 (6-35) U/L Alkaline Phosphatase 67 (38-126) U/L Albumin 4.5 (3.5-5.1) g/dL Urine 05/18/25 Range/Units 09:07 Urine Color Yellow (Yellow) Urine Appearance Clear (Clear) Urine pH 6.0 (5.0-9.0) Ur Specific [place] 1.007 (1.001-1.035) Urine Protein Negative (Negative) mg/dL Urine Glucose (UA) Negative (Negative) mg/dL Imaging CT scan - abdomen: Radiologist's impression: CT Scan Report Signed Patient: Yolanda Miner : 1990 MR#: [id number] Age: 35 Acct:[id number] Loc: [facility] ADM Date: 05/18/25Attending Dr: Ordering Physician: Joseph Gerber MD Date of Service: 05/18/25 Procedure(s): CT abdomen pelvis w con Accession Number(s): [id number] cc: Joseph Gerber MD; INSTRUMENT LENS GRINDER PHYSICIAN~ EXAMINATION: CT abdomen pelvis w con DATE: 05/18/2025 10:09 INDICATION: Right upper and lower quadrant abdominal pain TECHNIQUE: Computed tomography (CT) of the abdomen and pelvis was performed with 100 mL Omnipaque-350 intravenous contrast. Automated exposure control and iterative reconstruction technique were employed. The dose-length product was 205.29 mGy-cm. COMPARISON: None FINDINGS: Lung bases are clear. Visualized inferior heart is normal. No pericardial or pleural effusion. Liver, gallbladder, spleen, pancreas, bilateral adrenal glands and kidneys are normal. A fluid-filled dilated appendix measuring up to 1.3 cm diameter with appendicoliths at the base of the appendix and prominent surrounding inflammatory stranding consistent with acute appendicitis. No abscess or free intraperitoneal gas. Small amount of likely reactive free fluid in the deep pelvis. Bowels are otherwise unremarkable with no obstruction. Bladder, uterus and bilateral adnexa are unremarkable with 1.6 cm likely dominant follicle at the left ovary. No pathologically enlarged abdominal or pelvic lymphadenopathy. Bones are unremarkable. IMPRESSION: 1. Acute appendicitis. Dr. Morfin discussed these findings with Dr. Gerber at 10:48 AM. Reviewed, dictated and finalized at location A. Please be advised this is a medical document. It is intended for [id number] communication. It is written in medical language and may contain unfamiliar abbreviations or verbiage. Medical documents are intended to carry relevant information, facts as evident, and the clinical opinion of the practitioner at the time of the encounter. This report may have been done utilizing a voice recognition system. Attempts have been made to correct errors. However, there may be uncorrected grammatical, spelling, and recognition errors present. The file time of this note does not necessarily represent the time of service. Dictated By: Gaurav Morfin MD 05/18/25 1045 Signed By: <Electronically signed by Gaurav Morfin MD in OV> 05/18/25 1049 Assessment and Plan Assessment and plan (1) Acute appendicitis: Code(s): K35.80 - Unspecified acute appendicitis Status: Acute Assessment and Plan: Patient has acute appendicitis by history, exam, and verified by CT scan. Does not appear perforated there is no periappendiceal abscess. She has been started on broad-spectrum IV antibiotics. Will keep her NPO. Give her some pain medicines and IV fluids. Will add her to the operating room schedule today for a urgent laparoscopic appendectomy with possible version open appendectomy. Risks, benefits, indications, and expected outcomes were discussed in detail with the patient and/or family. They understand and I have answered all other questions. They wished to proceed with surgery as outlined above.
--- OUTSIDE RECORDS SUMMARY | 2025-05-18 12:00 | XMS_ITS | Clinical Summary ---
Author Organization [facility] Address [address] [place] [address] Care Team Providers Care Supervisor Wash House Name Role Phone Maria De Jesus Love [...] Subscriber:Child Name:IsidraMarita Date of :1956 (Home) Address: [address] [place] [id number] Payer ID:[id number] Type:PPO Address: [address] Care Teams Supervisor Wash House Relationship Specialty Start Date End Date Maria De Jesus Love MD PCP - General Internal Medicine 08/19/16
--- OUTSIDE RECORDS SUMMARY | 2025-05-18 12:00 | XMS_ITS | Encounter Summary ---
Author Organization [employer] Address 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
--- OUTSIDE RECORDS SUMMARY | 2025-05-18 12:00 | XMS_ITS | Encounter Summary ---
Author Organization [employer] Address 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
--- OUTSIDE RECORDS SUMMARY | 2025-05-18 12:00 | XMS_ITS | Encounter Summary ---
Author Organization [facility] Health Address [address] [place] [address] Care Team Providers Care Patient Support Specialist Name Role Phone Sharath Varghese PA-C Primary Care Provider Encounter Details Date Type Department Care Team (Late st Contact Info) Description 04/24/2022 Patient Outreach [facility] [address] [place] [address] Glenis Tavera, RN Social History [...] on filedocumented in this encounter Care Teams Patient Support Specialist Relationship Specialty Start Date End Date Sharath Varghese PA-C [address] [address] PCP - General 04/08/20 documented as of this encounter
--- OUTSIDE RECORDS SUMMARY | 2025-05-18 12:00 | XMS_ITS | Encounter Summary ---
Author Organization [employer] Address 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
--- OUTSIDE RECORDS SUMMARY | 2025-05-18 12:00 | XMS_ITS | Clinical Summary ---
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
--- OUTSIDE RECORDS SUMMARY | 2025-05-18 12:00 | XMS_ITS | Encounter Summary ---
Author Organization [facility] Health Address [address] [place] [address] Care Team Providers Care Vp Compliance Name Role Phone Sharath Varghese PA-C Primary Care Provider Reason for Visit * Reason Onset Date Comments Follow-up 04/09/2023 Encounter Details Date Type Department Care Team (Late st Contact Info) Description 04/09/2023 Patient Outreach [facility] [address] [place] [phone] Bolivar Patel RN Follow-up Social History Tobacco [...] on filedocumented in this encounter Care Teams Vp Compliance Relationship Specialty Start Date End Date Sharath Varghese PA-C [address] [address] PCP - General 04/08/20 documented as of this encounter
--- OUTSIDE RECORDS SUMMARY | 2025-05-18 12:00 | XMS_ITS | Encounter Summary ---
Author Organization [employer] Address 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
--- OUTSIDE RECORDS SUMMARY | 2025-05-18 12:00 | XMS_ITS | Clinical Summary ---
Author Organization [facility] Address [address] [place] [address] Care Team Providers Care Stock Feeder Name Role Phone Sharath Varghese PA-C Primary Care Provider Source Comments [facility],non-owned Affiliates and Associated Physician Practices is amultiple site organization consisting of ambulatory clinics and hospital sitesin [place], [place], [place] and [place]. This disclosure is being madepursuant to the Care Everywhere program and may not contain all information available regarding this patient. Last updated 18.[facility] Allergies Active Allergy Reactions Criticality Noted Date [...] this topic Insurance A[employer] AET[employer] Care Teams Stock Feeder Relationship Specialty Start Date End Date Sharath Varghese PA-C [address] [address] [facility] - General 04/08/20
[2025-05-18 12:21] LABS: Pregnancy On Board Control Positive
--- NOTE | 2025-05-18 13:10 | ADMGEN ---
This patient, Yolanda Miner, was admitted to [facility] Surg Room 313-01. Patient/family oriented to hospital policies and general routines including ID bracelet, bed and alarms, visiting hours, pain management, procedures, bathroom and other care routines, personal items, smoking policy, room service/diet, and visiting hours. Information on how to activate the Rapid Response Team has been discussed. Patient/Family are encouraged to report perceived risks to care and to ask questions if they do not understand what they are told or what they should do.
[2025-05-18] MEDS: PANTOPRAZOLE SODIUM IV 40 MG VIAL IV PUSH (13:41)
[2025-05-18] MEDS: SODIUM CHLORIDE 0.9% IV 1,000 ML 125 ML IV CONT ×2 (13:41→23:49)
--- NOTE | 2025-05-18 21:25 | PC.NURSE ---
Pt transferred via wheelchair to OR.
--- NOTE | 2025-05-18 21:25 | WPDHPUPDATE1 ---
History and Physical Update Update Date/Time: 05/18/25 21:25 History and Physical has been reviewed, including an updated exam of the patient. There are NO changes in the patient's condition. Risks, benefits, and alternatives have been discussed and questions answered. Patient agrees to proceed with procedure.
--- NOTE | 2025-05-18 21:32 | WPDANESEPPF ---
Anes - Initial Pre Proc Eval Procedure: Operation Date: 05/18/25 18:00 Proposed Procedures p Laparoscopic Appendectomy - Pablo Yu MD Date/Time: 05/18/25 21:32 Surgeon: Pablo Yu MD Pre Op Diagnosis: acute appendicitis Patient Data Age: 35 Gender: F Height: 1.6 m Weight: 54.4 kg Last Vital Signs Temp 36.7 C 05/18/25 13:58 Pulse 72 05/18/25 13:58 Resp 16 05/18/25 13:58 BP 129/81 05/18/25 13:58 Pulse Ox 99 05/18/25 13:58 O2 Del Method Room Air 05/18/25 09:06 Allergies Allergy/AdvReac Type Severity Reaction Status Date / Time amoxicillin Allergy Intermediate rash Verified 05/18/25 13:19 Home Medications ?Medication ?Instructions ?Recorded ?Confirmed ?Type cetirizine 10 mg tablet (24Hour 10 mg PO DAILY 05/18/25 05/18/25 History Allergy) fluticasone propionate 50 1 spray intranasal DAILY 05/18/25 05/18/25 History mcg/actuation nasal spray,suspension (24 Hour Allergy Relief) sertraline 25 mg tablet 25 mg PO Q24H 05/18/25 05/18/25 History Laboratory Tests 05/18/25 05/18/25 09:07 09:12 WBC 17.9 H K/mm3 (4.5-10.0) RBC 4.50 M/mm3 (4.2-5.4) Hgb 13.7 g/dL (12.0-15.0) Hct 40.3 % (37.0-47.0) MCV 89.6 fl (80-100) MCH 30.4 pg (26-34) MCHC 34.0 g/dl (32-36) RDW 11.3 L % (11.5-14.5) Plt Count 277 k/mm3 (150-375) MPV 11.1 H fl (7.4-10.4) Immature Gran % (Auto) 0.4 % (0-0.5) Neut % (Auto) 91.9 H % (45.5-73.1) Lymph % (Auto) 3.5 L % (18.3-44.2) [place] % (Auto) 4.0 % (2.6-8.5) Eos % (Auto) 0.0 % (0-4.4) Baso % (Auto) 0.2 % (0.2-1.2) Lymph # (Auto) 0.63 L K/mm3 (0.9-3.2) [place] # (Auto) 0.7 H K/mm3 (0.1-0.6) Eos # (Auto) 0.0 K/mm3 (0-0.3) Baso # (Auto) 0.0 K/mm3 (0.0-0.1) Abs Immat Gran (auto) 0.08 H K/mm3 (0.00-0.031) Absolute Neuts (auto) 16.4 H K/mm3 (1.3-6.7) Absolute Nucleated RBC 0.000 K/mm3 (0.0-0.012) Nucleated RBC % 0.0 % (0.0-0.2) PT 13.9 Seconds (11.1-14.7) INR 1.1 APTT 27.3 Seconds (22.3-36.8) Sodium 136 L mmol/L (137-145) Potassium 3.9 mmol/L (3.4-5.0) Chloride 103 mmol/L (98-107) Carbon Dioxide 23 mmol/L (22-30) Anion Gap 10 mmol/L (4-12) BUN 7 mg/dL (7-17) Creatinine 0.77 mg/dL (0.7-1.0) Estim Creat Clear Calc 75 ml/min Estimated GFR > 60 (59 - ) Glucose 105 mg/dL (65-110) Calcium 9.3 mg/dL (8.4-10.2) Total Bilirubin 0.5 mg/dL (0.2-1.3) AST 26 U/L (14-36) ALT 22 U/L (6-35) Alkaline Phosphatase 67 U/L (38-126) Total Protein 7.6 g/dL (6.3-8.2) Albumin 4.5 g/dL (3.5-5.1) Lipase 91 U/L (23-300) Urine Color Yellow (Yellow) Urine Appearance Clear (Clear) Urine pH 6.0 (5.0-9.0) Ur Specific [place] 1.007 (1.001-1.035) Urine Protein Negative mg/dL (Negative) Urine Glucose (UA) Negative mg/dL (Negative) Urine Ketones 2+ H mg/dL (Negative) Ur Blood (Man) Negative (Negative) Urine Nitrate Negative (Negative) Urine Bilirubin Negative (Negative) Urine Urobilinogen 0.2 mg/dL (<2.0) Leukocyte Esterase Rfl Negative LANETTE/UL (Negative) Urine Test Negative Patient hx anesthesia problems: post op nausea/vomiting (one time after endoscopy) Family hx anesthesia problems: none Results Review: All pre-operative results and documents have been reviewed as part of the pre-operative evaluation. [facility] Social History Social History Smoking status: Never smoker Drinks per week: 3 Substance use type: does not use Lack of Transportation: No Lack of Food: Never True Current Housing: I Have Housing Concerned About Future Housing: No Difficulty Paying Gas/Electric Bills: No Difficulty Paying for Meds: No Currently Unemployed: No Education: Decline to Answer Difficulty w/ Childcare or Family Care: No Spiritual care concerns: No Anes - Eval Final PreProcedure Day of Procedure 05/18/25 21:32 Patient weight: normal Heart: regular rate and rhythm Lungs: clear to auscultation Airway: Mallampati scale class 1 Neurological: alert and oriented Last oral intake: >/= 8 hours ASA classification: II Emergent: yes Anesthetic plan: proceed Anesthesia type and monitoring: general ETT and standard monitoring Results Review: All pre-operative results and documents have been reviewed as part of the pre-operative evaluation. Informed Consent: The patient's anesthetic plan and its attendant risks and benefits were discussed with the patient/family/POA. Questions were solicited and answers provided to the satisfaction of the patient/family/POA.
--- NOTE | 2025-05-18 22:14 | S_PTH ---
PATIENT: Yolanda Miner LOC: [id number] U#:[id number] AGE/SX: 35/F ROOM: 313 RE05/18/[address]: Pablo Yu MD : 1990 BED: 01 DIS: 05/19/2025 SPEC #: [id number] RECD: 05/21/25 08:16 STATUS: YAO REQ #: [id number] AYAD: 05/18/25 22:[address]: Pablo Yu DEPT: [facility] Surgical RECD BY: Consuelo Borja ENTERED: 05/21/25 08:16 SP TYPE: Surgical OTHR DR: MD Deboar Boudreaux, DO Reynold Dahl, TORTILLA MAKER PHYSICIAN Tissues: A - Appendix Procedures: Hematoxylin and Eosin Stain Gross and Microscopic Level 3
[2025-05-18] MEDS: LIDO 1%/EPINEPHRINE 1:100,000 50 ML VIAL 30 ML INFILTRATE (22:18)
[2025-05-18] MEDS: KETOROLAC 30 MG/ML VIAL (*BKC) IV PUSH (22:27)
[2025-05-18] MEDS: LACTATED RINGERS 1,000 ML 30 ML IV CONT ×2 (22:48)
--- NOTE | 2025-05-18 22:51 | W.PM.PROC2 ---
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 Pain localized to right lower quadrant the abdomen. White blood cell count was elevated and a CT scan abdomen pelvis showed a dilated appendix up to 1.3cm in diameter with periappendiceal inflammation and appendicoliths without evidence of perforation or abscess. She presents now for an urgent laparoscopic appendectomy. Findings Patient had acutely inflamed appendix without evidence of perforation or periappendiceal abscess. The whole appendix down to the base was inflamed but the base was viable. Did have palpable appendicoliths in the appendix upon palpation before the specimen was sent to pathology. Description of Procedure After informed consent was obtained patient brought to the operating room she was placed supine position and general endotracheal anesthesia was administered. A Rhodes catheter was placed decompress the bladder and then the abdomen was then prepped and draped usual sterile fashion. A time-out was then performed correctly identifying the patient as well as procedure to be performed. She was given Zosyn for perioperative IV antibiotics. I then entered the abdomen left upper quadrant utilizing a 5mm Optiview port. Once inside the abdomen insufflated to adequate pneumoperitoneum of 15mmHg of CO2. There was a clear view of the right lower quadrant the abdomen the pelvis. I then placed a 5mm suprapubic trocar port as well as a 12mm periumbilical trocar port and another 5mm right lower quadrant trocar port all under direct visualization. Then utilizing laparoscopic instruments working through these 3 ports I was able to identify the appendix in the right lower quadrant anterior to the cecum and just lateral to the cecum. The appendix was acutely inflamed without evidence of perforation there was no appendiceal abscess. There was small amount of fibrinous exudate on the appendix. The base of the appendix was inflamed but it was completely viable. I was then able to mobilize the appendix away from the cecum with blunt dissection utilizing the irrigation tip. I then made a defect through the mesoappendix just at the base with a laparoscopic dissected and then used a 45mm Endo-LEONILA stapler to divide the appendix flush with the cecum. Two vascular reload to the Endo-LEONILA stapler was then used to divide the mesoappendix. The appendix was then placed into an Endo-Catch bag and brought out through the periumbilical trocar port site. It was sent to pathology for examination. I did palpate appendicoliths within the appendix before sent to pathology. I then examined both staple lines and they were hemostatic. I then irrigated out the right lower quadrant of the abdomen and the pelvis. I then aspirated the fluid from the pelvis and the right side of the abdomen. I then removed all the trocar ports under direct visualization all port sites appeared hemostatic. The abdomen was allowed to decompress. I then closed the 12mm periumbilical trocar port fascial defect utilizing 0 Vicryl suture placed in a figure-eight fashion. The skin edges in all the port sites were then approximated utilizing a running subcuticular 4-0 Monocryl suture. The incisions were then cleaned and then skin glue was applied. The Rhodes catheter was removed and the procedure. The patient tolerated the procedure well no complications. All sponges, needles, and instrument counts were correct at the end procedure. EBL was _10__cc. The patient was awakened and taken to recovery in stable and satisfactory condition. Implants None Estimated Blood Loss 10 Drains No Packing No Pathology Yes (Appendix to pathology) Complications No immediate complications Condition Stable Disposition PACU [facility] Billing Surgery - Charge Forward: Surgery Billing
--- NOTE | 2025-05-18 23:35 | PC.NURSE ---
Pt arrived to the floor from PACU via stretcher
[2025-05-19 00:18] VITALS: BP 110/69; PULSE 74; RESP 18; TEMP 36.9; O2SAT 97
[2025-05-19 00:39] VITALS: BP 117/72; PULSE 82; RESP 18; TEMP 37.1; O2SAT 98
[2025-05-19 02:10] VITALS: BP 111/68; PULSE 70; RESP 16; TEMP 36.8; O2SAT 98
[2025-05-19] MEDS: HYDROmorphone HCL INJ (*CRX) 2 MG/ML VIAL 1 MG IV PUSH (05:29)
[2025-05-19] MEDS: PIPERACILLIN/TAZOBACTAM SOD 3.375 GM in SODIUM CHLORIDE 0.9% IV 50 ML 100 ML IVPB (05:34)
[2025-05-19 05:47] VITALS: BP 111/66; PULSE 64; RESP 16; TEMP 36.1; O2SAT 96
[2025-05-19] MEDS: HYDROcodone/acetaminophen (*CRX) 5-325 MG TABLET 1 TAB PO ×2 (06:32→10:44)
[2025-05-19] MEDS: LORATADINE 10 MG TABLET PO (08:28)
[2025-05-19] MEDS: FLUTICASONE PROPIONATE 0.05% NA SPR 16 GM BTL (*BKC) 1 SPRAY NASAL (08:28)
[2025-05-19] MEDS: SERTRALINE HCL 25 MG TABLET PO (08:28)
[2025-05-19] MEDS: SODIUM CHLORIDE 0.9% IV 1,000 ML 125 ML IV CONT (09:31)
[2025-05-19 09:58] VITALS: BP 100/52; PULSE 84; RESP 14; TEMP 36.7; O2SAT 100
--- NOTE | 2025-05-19 12:52 | P.DS_ITS ---
DS: Admitting Diagnosis Discharge Date May 19, 2025 Admitting Diagnosis Acute appendicitis DS: Discharge Diagnosis Discharge Diagnosis (1) Acute appendicitis: Code(s): K35.80 - Unspecified acute appendicitis Status: Acute DS: Summary Hospital Course Reason for hospitalization: Acute appendicitis Hospital Course: Patient present to the [facility] Emergency Room with a 1 day history of worsening lower abdominal pain which localized right lower quadrant the abdomen. She has slightly elevated white blood cell count but no fever. Abdominal exam revealed tenderness the right lower quadrant the abdomen. A CT scan abdomen pelvis was then performed showing a dilated appendix up to 1.3cm in diameter. There was periappendiceal inflammation and appendicoliths but no perforation or periappendiceal abscess. She was admitted to the hospital for surgical management of her acute appendicitis. Along the surgical floor she was then she started on Zosyn for IV antibiotics. She was kept NPO and given IV pain medications until we can get her to the operating room as an add on acute appendicitis appendectomy. Unfortunately we were not able to get her to the operating room till later in the evening. However once that was done she underwent an uncomplicated laparoscopic appendectomy. There was no evidence of perforation or periappendiceal abscess. Postoperatively her course recovery was uneventful and she was transferred back to surgical routine care overnight. Overnight she had good pain control with oral pain medications. He was able to get up and ambulate go to the bathroom without difficulty. She was afebrile and hemodynamically stable. The next morning she was advanced to regular food which he tolerated well. Her incisions were clean and dry and her severe right lower quadrant abdominal pain had resolved. She was only having some mild tenderness around her port site incisions. It was decided postop day 1. She was doing well enough to be discharged home in improved condition. Status at Discharge Functional status at discharge: independent ambulation Overall status at discharge: patient is back to baseline Time Spent with Patient Time attestation: Total time spent providing and/or coordinating discharge services: Time spent: Less than 30 minutes Exam GI: Other: abdomen is soft and nondistended. Well-healing port site incisions x4. No redness or drainage from the incisions. Expected minor tenderness around palpation of each incisions. No longer having any tenderness in the right lower quadrant or any guarding or peritoneal signs. DS: Data Data Completed and Pending Pending studies at discharge: Pending at discharge 05/18/25 22:14 Surgical [PTH] Routine Discharge Plan Discharge Attending physician on discharge: Pablo Yu Consulting providers: Yesika Bernstein Discharging Clinician: Pablo Yu Anticipated Discharge Date/Time: 05/19/25 12:49 Patient Disposition: Home Activity: may shower Diet: regular Discharge Instructions: May discharge home when stable. Follow up with Dr. Yu in the office in 2 weeks. Patient to call [phone] for an appointment. May shower in 24hours but do not soak incisions under water for 2 weeks. No lifting more than 10 to 15 lb for 2 weeks. May advance diet as tolerated. No driving for at least 3 days or until no longer taking any narcotic pain medication. Resume all home medications. Prescription for narcotic pain medicines will be sent to the patient's pharmacy if needed. May use Tylenol and/or ibuprofen in addition to or in place of narcotic pain medications for postoperative pain. 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
--- NOTE | 2025-05-19 13:16 | WPDANESPN ---
Anes - Prog Note Post-Op Date/Time: 05/19/25 13:16 Cardiovascular status: normal Respiratory status: normal Airway patency: baseline Mental status: baseline Post-Op hydration status: normal Vital Signs: Last Vital Signs Temp 98.1 F 05/19/25 09:58 Pulse 84 05/19/25 09:58 Resp 14 05/19/25 09:58 BP 100/52 L 05/19/25 09:58 Pulse Ox 100 05/19/25 09:58 O2 Del Method Room Air 05/19/25 08:00 O2 Flow Rate 8 05/18/25 23:00 Pain Score (VAS): 3 I/O: Intake & Output 05/18/25 05/19/25 05/19/25 23:59 07:59 15:59 Intake Total 1200 1050 0 Output Total 100 Balance 1200 950 0 Laboratory Tests 05/18/25 09:12 05/18/25 09:12 Post-procedural complaints: none Patient Feedback: Patient satisfied with anesthetic care.
== END 2025-05-19 13:30 | disposition home or self-care (01) ==
LOC: ANHED 12:17 → ANH3MEDSUR 12:39
PROVIDERS: Admitting Provider Surgery; Emergency Provider Emergency Medicine; Visit Provider Surgery
PROC: 0DTJ4ZZ Resection of Appendix, Percutaneous Endoscopic Approach (ICD-10-PCS; CPT 44970; principal; 2025-05-18 18:00)
DX: K35.80 Unspecified acute appendicitis (principal)
CPT/HCPCS: 44970; 36415; 74177; 80053; 81003; 81025; 83690; 85025; 85610; 85730; 88304; 96361; 96365; 96375; 99285; A9270; G0378; J1100; J1171; J1885; J2003; J2004; J2175; J2250; J2405; J2470; J2543; J2704; J3010; J7030; J7120; Q9967